=== PATIENT | female | born 1960 | race Caucasian/White ===

== ENCOUNTER → 2017-08-17 | Outpatient (CLI) | payer BC ==
[~2017-08-17] MED LIST: ACE325 PO; ACET-1966 PO; ADVAIR INHALER IH; CELE-1 PO; CYC10 PO; DIA5 PO; DOC100 PO; GLUC-255 PO; IBUP-1455 PO; IBUP200C71 PO; MULT1000 PO; MULT1TAB64 PO; MV C PO; NOR5/325 PO; NOR75/325 PO; OXYC-865 PO; OXYC20TA86 PO; PER PO; PREG150C34 PO; PROTONIX; PROVENTIL INHALER IH; VICODIN PO
[2017-08-17 08:56] LABS: PLATELET COUNT, AUTOMATED 321 K/uL (150-450)
--- NOTE | 2017-08-17 11:30 | EKG ---
FACILITY: [facility] PATIENT NAME: NAV BHAT : [id number] MR: [id number] V: [id number] EXAM DATE: ORDERING PHYSICIAN: MARJORIE STARR TECHNOLOGIST: JOSE Walton Reason : PREOP Blood Pressure : / mmHG Vent. Rate : 068 BPM Atrial Rate : 068 BPM P-R Int : 176 ms QRS Dur : 098 ms QT Int : 414 ms P-R-T Axes : 076 080 065 degrees QTc Int : 440 ms Normal sinus rhythm Normal ECG When compared with ECG of 11-MAR-2016 08:43, No significant change was found Confirmed by STEPHANIA ANGULO ([id number]) on 08/17/2017 12:55:17 PM Referred By: MATTY Confirmed By:STEPHANIA ANGULO
== END ==
LOC: LAB 08:18
PROVIDERS: ATTEND Orthopaedic Surgery
DX: Z01.812 Encounter for preprocedural laboratory examination (principal); Z01.810 Encounter for preprocedural cardiovascular examination; M16.11 Unilateral primary osteoarthritis, right hip; F32.9 Major depressive disorder, single episode, unspecified
CPT/HCPCS: 36415; 81001; 82040; 82247; 82310; 82374; 82435; 82565; 82947; 84075; 84132; 84155; 84295; 84450; 84460; 84520; 85025; 93005

== ENCOUNTER 2017-09-12 01:21 | Inpatient (IN) | payer BC ==
[2017-09-11 15:35] LABS: INR 0.99
[~2017-09-12] VITALS: Ht 160 cm; Wt 88.0 kg
[2017-09-12] VITALS (13 sets, daily range): BP systolic 83–141; BP diastolic 56–75
[~2017-09-12 01:21] MED LIST changes: +CHOL10005 PO; +OMEG-176 PO; +TERB250T74 PO; +VENL75TA12 PO
[2017-09-12] MEDS ORDERED: LIDOCAINE/SOD BICARB 8.4% SYR ID ONE (11:45)
[2017-09-12] MEDS ORDERED: cloNIDine EPIDUR INJ 100MCG/ML 40 MCG, ROPIVACAINE 0.5% 20 ML VIAL 25 ML, EPINEPHrine H... INJ ONE (11:45)
[2017-09-12] MEDS ORDERED: MIDAZOLAM 2 MG/2 ML VIAL IVP PRN (11:45)
[2017-09-12] MEDS ORDERED: FAMOTIDINE 20 MG TAB PO ONE (11:45)
[2017-09-12] MEDS ORDERED: BACITRACIN 50000 UNIT/VIAL 100,000 UNIT in NS 0.9% 3000 ML IRRIGATION BAG 3,000 ML IR ONE (11:45)
[2017-09-12] MEDS ORDERED: ceFAZolin(*) 2GM/D5W 50ML 50 ML IVPB ONE (11:45)
[2017-09-12] MEDS ORDERED: NORMOSOL R SOLN(*) 1000 ML BAG 1,000 ML IV PRN (11:45)
[2017-09-12] MEDS ORDERED: TRANEXAMIC AC 1000 MG/10ML SDV 1,000 MG in DEXTROSE 5% 50 ML BAG 50 ML IV ONE (11:45)
[2017-09-12] MEDS ORDERED: ROCURONIUM BROM 10 MG/ML 10 ML ONE (13:52)
[2017-09-12] MEDS ORDERED: PROPOFOL EMUL(*) 10MG/ML 20 ML 40 ML ONE (13:52)
[2017-09-12] MEDS ORDERED: SUCCINYLCHOL CHL 200MG/10ML VL ONE (13:52)
[2017-09-12] MEDS ORDERED: DEXAMETHASONE SOD PHOS 10MG/ML ONE (14:09)
[2017-09-12] MEDS ORDERED: ONDANSETRON 4 MG/2 ML VIAL ONE (14:09)
[2017-09-12] MEDS ORDERED: ePHEDrine 25 MG/5 ML DISP.SYR IVP ONE (14:49)
[2017-09-12] MEDS ORDERED: SUGAMMADEX SOD 200 MG/2 ML SDV ONE (15:46)
[2017-09-12] MEDS ORDERED: ZOLPIDEM TARTRATE 5 MG TAB PO PRN (16:20)
[2017-09-12] MEDS ORDERED: HYDROmorphone HCL 2 MG/ML SDV IVP PRN (16:20)
[2017-09-12] MEDS ORDERED: diphenhydrAMINE 50 MG/ML VIAL IVP PRN (16:20)
[2017-09-12] MEDS ORDERED: BISACODYL 10 MG SUPP PR PRN (16:20)
[2017-09-12] MEDS ORDERED: ONDANSETRON 4 MG/2 ML VIAL IVP PRN (16:20)
[2017-09-12] MEDS ORDERED: LR 1000 ML BAG 1000 ML IV PRN (16:20)
[2017-09-12] MEDS ORDERED: MAGNESIUM HYDROXIDE* 30ML UDCP PO PRN (16:20)
[2017-09-12] MEDS ORDERED: PROMETHAZINE 25 MG/ML 1 ML AMP IVP PRN (16:20)
[2017-09-12] MEDS ORDERED: MAGNESIUM CITRATE 300 ML BTL PO PRN (16:20)
[2017-09-12] MEDS ORDERED: diphenhydrAMINE 25 MG CAP PO PRN (16:20)
[2017-09-12] MEDS ORDERED: FLUSH 10 ML SYR IVP PRN (16:20)
--- NOTE | 2017-09-12 16:24 | RADIOLOGY IMAGING REPORT ---
FACILITY: [facility] - [place] PATIENT NAME: Jessica Briggs : 1960 MR: [id number] V: [id number] EXAM DATE: ORDERING PHYSICIAN: MARJORIE STARR TECHNOLOGIST: Location: [facility] Patient: Jessica Briggs : 1960 Visit/Account:[id number] Date of Sevice: 09/12/2017 Technique: HIP IN OR RIGHT HISTORY: IMPLANT PLACEMENT TOTAL HIP Comparison studies: None FINDINGS: Present are bilateral hip arthroplasties. There is gross anatomic alignment. Metallic den sity overlies the left hip. There is no acute fracture. Expected adjacent postoperative changes are seen near the right hip. IMPRESSION: 1. Bilateral hip arthroplasties with gross anatomic alignment. Report Dictated By: William Brantley DO at 09/12/2017 4:19 PM Report E-Signed By: William Brantley DO at 09/12/2017 4:20 PM WSN:[email or web address]
[2017-09-12] MEDS ORDERED: fentaNYL CITR 100 MCG/2 ML AMP ONE (16:33)
--- NOTE | 2017-09-12 16:49 | RADIOLOGY IMAGING REPORT ---
FACILITY: [facility] - [place], [place] PATIENT NAME: Jessica Briggs : 1960 MR: [id number] V: [id number] EXAM DATE: ORDERING PHYSICIAN: MARJORIE STARR TECHNOLOGIST: Location: [facility] Patient: Jessica Briggs : 1960 Visit/Account:[id number] Date of Sevice: 09/12/2017 Technique: PELVIS HISTORY: CONFIRM PLACEMENT Comparison studies: Hip radiographs September 12, 2017 FINDINGS: Present are bilateral hip arthroplasties. The alignment of the arthroplasties are maintain ed. There is no acute fracture. Expected adjacent postoperative changes are noted near the right hi p. IMPRESSION: 1. Bilateral hip arthroplasties without evidence of hardware complication. Report Dictated By: William Brantley DO at 09/12/2017 4:44 PM Report E-Signed By: William Brantley DO at 09/12/2017 4:45 PM WSN:[email or web address]
--- NOTE | 2017-09-12 19:17 | Hospitalist Progress Note ---
Subjective Progress Notes Subjective No cp/sob. EBL 100cc. 1600cc of crystalloid, dexamethasone, ephedrine and TXA given intra-op. Physical Exam Vital Signs Date Time Temp Pulse Resp B/P (MAP) Pulse Ox O2 Delivery O2 Flow Rate FiO2 09/12/17 18:28 98.0 64 16 120/59 (79) 96 Room Air 09/12/17 17:20 0.5 Intake and Output 09/13/17 07:00 Intake Total 1750 ml Balance 1750 ml Intake IV Total 1750 ml General Appearance: Alert, Awake, No Acute Distress Cardiovascular: Regular Rate and Rhythm Respiratory: Clear to Auscultation Extremities: No Edema Assessment and Plan Problems: (1) Status post hip replacement Status: Acute Assessment & Plan: No CV/pulmonary issues. No history of DVT/PE. The patient will be on ASA 325mg a day for 30 days after surgery for blood clot prevention. (2) Depression Status: Chronic Assessment & Plan: Continue chronic venlafaxine. (3) Onychomycosis Status: Chronic Assessment & Plan: Continue chronic terbinafine. Problem Qualifiers (1) Status post hip replacement: Laterality: right Qualified Codes: Z96.641 - Presence of right artificial hip joint AGUEDA DENSON MD Sep 12, 2017 19:17
--- NOTE | 2017-09-12 20:17 | OPERATIVE REPORT 1 ---
EVENT DATE: September 12, 2017 SURGEON: Bubba Benites MD ANESTHESIOLOGIST: Marquise Cantor MD ANESTHESIA: General endotracheal anesthesia with a spinal. MACHINE BANDER AND CELLOPHANER: Salazar Colon PA-C PREOPERATIVE DIAGNOSIS Right hip osteoarthritis. POSTOPERATIVE DIAGNOSIS Right hip osteoarthritis. PROCEDURE PERFORMED Right total hip arthroplasty. FINDINGS The patient had significant arthritic changes associated with the hip and was amenable for total hip replacement. ESTIMATED BLOOD LOSS About 300 mL DRAINS None. COMPLICATIONS None. TOURNIQUET TIME Not applicable. IMPLANTS USED Cindy 54 mm trabecular metal cluster hole cup with one dome hole plug and three screw hole plugs, a standard neutral liner for a 36 head, a 7.5 standard stem, and 36 +0 ceramic head. SPECIMENS None. INDICATIONS AND HISTORY This patient is a 57-year-old female who presented to my clinic for evaluation of right hip pain and irritation going on for some time. She has had a left total hip arthroplasty in the past and had some relief associated with it, and so therefore, she wanted to go ahead with a right total hip arthroplasty today, September 12, 2017. CONSENT The risks and benefits were discussed her, and informed consent was obtained. We talked about the implications of this as well as other treatment options. Since she had the total hip on the other side, she wanted to go ahead with that and get set up for that today. After discussion of the risks and benefits, informed consent was obtained at the last clinic visit. We specifically discussed leg length discrepancy, dislocation, and other risks associated with a total hip arthroplasty and surgery in general. DESCRIPTION OF PROCEDURE As the patient was brought into the operating room, she and the procedure were both verified. She was placed in a sitting position and then given a spinal by the anesthesiologist, Dr. Cantor. She was then laid flat, intubated, and then turned in the lateral decubitus position with the right hip towards the ceiling. The right hip was then prepped and draped in the usual fashion. A timeout was observed verifying the correct patient and procedure. The standard incision was then made over the posterolateral aspect of the hip. It was taken through the skin and subcutaneous tissue until I got down to the IT band and through the gluteal musculature. Once I was able to get through the gluteal musculature, I then made a small incision within the gluteal musculature and down into the IT band in order to gain exposure. Once I got down into this area, I was then able to identify the piriformis and the short external rotators. I was then able to take down the piriformis and tag it for later repair and then take down the short external rotators on this side. I then was able to identify the joint capsule for the posterior aspect of the hip and then make a T-shaped incision within the capsule in order to dislocate the hip. I dislocated the hip without any major difficulty and tagged the capsule for later repair. We then cut off the femoral head in accordance with the Cindy system. I then was able to gain access to the acetabulum by placing retractors 360 degrees around the acetabulum. Once I was able to get good access associated with this , I was then able to remove the labrum without much difficulty, and we were able to remove the labrum in its entirety. I then was able to remove the ligamentum teres and then subsequently ream the acetabulum. This was commenced by starting with a low 41 mm reamer and then reaming all the way up to a 53 mm reamer with concentric reaming in order to get a rim-to-rim, [id number] fit of the 54 mm cup. I then placed the cup without any difficulty. I was able to get it seated down with good version as well as tilt, and then we put in the dome hole and screw hole plugs without any difficulty and then followed by the liner after irrigating with copious amounts of saline, using pulsatile lavage throughout. I then turned attention to the femoral side again where we internally rotated the leg and flexed it up in order to gain access to the femoral canal. I was then able to put in the canal finder, then also the box cutting osteotome, and then the lateralizing reamer. Once I was able to get through and make everything in a good position, I was then able to broach. Starting with the 4 broach, we then went all the way up to 7.5 standard broach which fit well and had no signs of problems, and so therefore, this was the final stem chosen. I then put on a standard head and neck and then reduced the hip. I put it through range of motion. There were no signs of major instability or issues associated with that, and so therefore, we then took an intraoperative x-ray, verifying the leg lengths were good and the cup was in good position. We, therefore, chose the final components of a 7.5 standard stem with a 36 +0 ceramic head. I was then able to reduce the hip with the complete components in place. I then closed the capsule on the posterior side. This was then followed by repairing the piriformis through drill holes through the posterior aspect of the femur using the heavy Ethibond sutures. I then irrigated again with copious amounts of saline, injected the pain cocktail in there, and then closed the IT band and the gluteal musculature using a #1 Stratafix, followed by 2-0 Vicryl in a very thick fat layer. This was then followed by 2-0 Stratafix in the subcutaneous layer and subcuticular 4-0 running Monocryl. The wound was dressed with Steri-Strips, gauze 4 x 4's, a soft dressing, and a hip wrap. Then , the patient was awakened, extubated, and transported to the PACU in stable condition. SENG
[2017-09-12] MEDS ORDERED: ASPIRIN 325 MG TAB PO SCH (21:00)
[2017-09-12] MEDS: ceFAZolin(*) 2GM/D5W 50ML 50 ML IVPB SCH (23:01)
[2017-09-13 03:04] VITALS: BP 131/70
[2017-09-13] MEDS: ceFAZolin(*) 2GM/D5W 50ML 50 ML IVPB SCH ×2 (05:46→13:44)
[2017-09-13 08:24] VITALS: BP 110/55
--- NOTE | 2017-09-13 08:45 | Hospitalist Progress Note ---
Subjective Progress Notes Subjective Patient states she is doing well today and is ready to go home. Patient Complains of: Cardiovascular: No: Chest Pain Respiratory: No: Shortness of Breath Physical Exam Vital Signs Date Time Temp Pulse Resp B/P (MAP) Pulse Ox O2 Delivery O2 Flow Rate FiO2 09/13/17 08:24 97.2 69 16 110/55 (73) 99 Nasal Cannula 0.5 Intake and Output 09/14/17 07:00 Intake Total 75 ml Balance 75 ml IV Total 75 ml General Appearance: Alert, Awake, No Acute Distress, Afebrile Cardiovascular: Regular Rate and Rhythm Respiratory: No Respiratory Distress Extremities: No Edema Psych: Alert & Oriented X3, Appropriate Mood & Affect Result Diagram: 09/13/17 0527 Assessment and Plan Problems: (1) Status post hip replacement Status: Acute Assessment & Plan: No CV/pulmonary issues. No history of DVT/PE. The patient will be on ASA 325mg a day for 30 days after surgery for blood clot prevention. (2) Depression Status: Chronic Assessment & Plan: Continue chronic venlafaxine. (3) Onychomycosis Status: Chronic Assessment & Plan: Continue chronic terbinafine. Exam Sepsis Risk: No Definite Risk Problem Qualifiers (1) Status post hip replacement: Laterality: right Qualified Codes: Z96.641 - Presence of right artificial hip joint EZEKIEL JOY [facility] Sep 13, 2017 08:45
[2017-09-13] MEDS ORDERED: OXYC-865 PO (08:54)
[2017-09-13] MEDS ORDERED: VENLAFAXINE REG 75 MG TAB PO SCH (09:00)
[2017-09-13] MEDS ORDERED: PATIENT'S OWN MED PO SCH (09:00)
[2017-09-13] MEDS ORDERED: TERBINAFINE 250 MG TAB PO SCH (09:00)
[2017-09-13 10:38] VITALS: BP 117/53
[2017-09-13 16:49] VITALS: Ht 160 cm; Wt 88.0 kg
== END 2017-09-13 15:45 | disposition home or self-care (01) | DRG 470 ==
LOC: OR 01:21 → MED 17:20
PROVIDERS: ADMIT Orthopaedic Surgery; ATTEND Orthopaedic Surgery
PROC: 0SR902Z Replacement of Right Hip Joint with Metal on Polyethylene Synthetic Substitute, Open Approach (ICD-10-PCS; principal; 2017-09-12 13:43)
DX: M16.11 Unilateral primary osteoarthritis, right hip (principal); F32.9 Major depressive disorder, single episode, unspecified; B35.1 Tinea unguium; Z87.891 Personal history of nicotine dependence; Z98.1 Arthrodesis status; E66.9 Obesity, unspecified; Z68.35 Body mass index [BMI] 35.0-35.9, adult; Z96.642 Presence of left artificial hip joint; Z68.34 Body mass index [BMI] 34.0-34.9, adult
CPT/HCPCS: 36415; 72170; 85014; 85018; 85610; 86850; 86900; 86901; 97161; 97165; C1713; C1776; J0171; J0330; J0690; J0735; J1100; J1885; J2250; J2405; J2704; J2795; J3010; J7050; J7060

== ENCOUNTER → 2018-05-29 | Outpatient (CLI) | payer BC ==
[2017-09-13 16:49] VITALS: BMI 34.4
[~2018-05-29] MED LIST changes: +IBUP-136 PO; -IBUP200C71 PO
--- NOTE | 2018-05-30 08:33 | RADIOLOGY IMAGING REPORT ---
FACILITY: [facility] PATIENT NAME: NAV BHAT : [id number] MR: [id number] V: [id number] EXAM DATE: [id number] ORDERING PHYSICIAN: CARLA GALDAMEZ TECHNOLOGIST: Hiwot Jauregui PROCEDURE:BILATERAL DIGITAL SCREENING MAMMOGRAM WITH CAD ASSISTED INTERPRETATION & 3D TOMOSYNTHESIS COMPARISON:Prior mammograms 10/21/15, 05/24/12. INDICATIONS:SCREENING FINDINGS: Mildly heterogeneous fibroglandular tissue is seen throughout the breasts. The parenchymal pattern has remained stable allowing for difference in mammographic technique & patient positioning. There is no evidence of malignant appearing mass, malignant appearing calcifications or other secondary sign of malignancy in either breast. DIAGNOSTIC CATEGORY 1--NEGATIVE. RECOMMENDATIONS: ROUTINE MAMMOGRAM AND CLINICAL EVALUATION. IMPRESSION: BIRADS 1: Negative. No significant abnormality is seen. Dictated by: Swati Marlow M.D. on 05/29/2018 at 15:53 Transcribed by: JACKELYN on 05/29/2018 at 16:02 Approved by: Swati Marlow M.D. on 05/30/2018 at 8:32 [facility]
== END ==
LOC: MAMO 01:58
PROVIDERS: ATTEND Nurse Practitioner Family
DX: Z12.31 Encounter for screening mammogram for malignant neoplasm of breast (principal)
CPT/HCPCS: 77063; 77067